=== PATIENT | male | born 1985 | race Caucasian/White ===

== ENCOUNTER → 2024-12-10 06:12 | Day surgery (SDC) | payer OTHER, SELFPAY ==
[2024-12-10] VITALS (10 sets, daily range): BP systolic 101–124; BP diastolic 77–87; BMI 32.5
[2024-12-10] MEDS: NORMOSOL-R/PLASMALYTE-A 1000 IV (09:55)
--- NOTE | 2024-12-10 14:06 | SUR.PHASEI ---
patient very sleepy in pacu - I am only 'tired'. denies pain, no nausea, no bleeding. Easily to arouse -but quickly falls back to sleep. discharge to [facility]
== END ==
LOC: SDS 06:12
PROVIDERS: ATTENDING PHYSICIAN Otolaryngology
DX: J35.01 Chronic tonsillitis (principal); F17.210 Nicotine dependence, cigarettes, uncomplicated
CPT/HCPCS: 42826; 88304